=== PATIENT | female | born 1965 | race Two or more races ===

== ENCOUNTER 2018-11-06 22:22 | Emergency (ER) | payer OTHER ==
[~2018-11-06] VITALS: Ht 167.6 cm; Wt 63.0 kg
== END 2018-11-07 00:02 | disposition home or self-care (01) ==
LOC: ER 22:22
DX: K57.90 Diverticulosis of intestine, part unspecified, without perforation or abscess without bleeding (principal); R31.9 Hematuria, unspecified

== ENCOUNTER 2019-08-01 23:12 | Inpatient (IN) | payer OTHER ==
[~2019-08-01] VITALS: Ht 182.9 cm; Wt 5.0 kg
[2019-08-01] MEDS ORDERED: WELLBUTRIN XL300 MG (23:31)
[2019-08-05] MEDS ORDERED: INTESTINEX680 M1 PO (11:17)
== END 2019-08-05 12:21 | disposition home or self-care (01) | DRG 392 ==
LOC: ER 23:12 → MEDJ 08-02 12:52
PROVIDERS: ADMIT Internal Medicine
DX: K52.89 Other specified noninfective gastroenteritis and colitis (principal); J32.2 Chronic ethmoidal sinusitis

== ENCOUNTER 2024-08-20 13:37 | Emergency (ER) | payer OTHER ==
[~2024-08-20] VITALS: Ht 167.6 cm; Wt 67.6 kg
[~2024-08-20 13:37] MED LIST: INTESTINEX680 M1 PO; WELLBUTRIN XL300 MG
[2024-08-20] MEDS ORDERED: METOPROLOL SUCC25 MG PO (14:40)
[2024-08-20] MEDS ORDERED: KETOROLAC TROMETHAMINE 60 MG VIAL IM ONE (15:30)
== END 2024-08-20 19:02 | disposition home or self-care (01) ==
LOC: ER 13:40
DX: S93.491A Sprain of other ligament of right ankle, initial encounter (principal); Z91.040 Latex allergy status; W10.0XXA Fall (on)(from) escalator, initial encounter; Y93.89 Activity, other specified; Y92.89 Other specified places as the place of occurrence of the external cause; Z91.041 Radiographic dye allergy status; I10 Essential (primary) hypertension; S89.81XA Other specified injuries of right lower leg, initial encounter; S69.81XA Other specified injuries of right wrist, hand and finger(s), initial encounter